=== PATIENT | female | born 1985 | race Caucasian/White ===

== ENCOUNTER 2017-03-02 10:51 | Inpatient (IN) | payer BC, OTHER ==
[~2017-03-02] VITALS: Ht 165.1 cm; Wt 109.3 kg
[2017-03-03 02:26] LABS: *URINE HCG, QUAL NEGATIVE (NEGATIVE)
[2017-03-03 02:30] LABS: *AMPHETAMINE, URINE NEGATIVE (NEGATIVE); *BARBITURATE, URINE NEGATIVE (NEGATIVE); *CANNABINOID, URINE POSITIVE (NEGATIVE); *COCCAINE, URINE POSITIVE (NEGATIVE); *OPIATE, URINE NEGATIVE (NEGATIVE); *PHENCYCLIDINE SCREEN,URINE NEGATIVE (NEGATIVE)
--- NOTE | 2017-03-03 03:30 | NUR ---
Intake Assessment; Patient is a 31 year old female, presented to [facility] to detoxify from ETOH, CRACK/COCAIN . Patient appears mildly intoxicated, patient admitted that he took substances prior to admission. Admitting vital signs are as follows; BP 125/78, HR 76, temperature 98.1, respirations of 16, Spo2 of 98% on room air denies pain at this time. Patient is awake, alert, oriented to name, place, time and situation, patient is cooperative. Patient did not bring any home medications. Educated patient regarding unit protocols and policies, patient verbalized understanding. Patient will be evaluated by MD in A.M. . No s/s of distress noted at this time. Respirations even and unlabored. Will admit to unit.
[2017-03-03 04:00] VITALS: BP 125/75
--- NOTE | 2017-03-03 04:00 | NUR ---
ADMISSION NOTE : Patient is a 31 year old female, presented to [facility] to detoxify from ETOH, CRACK/COCAIN . Patient appears mildly intoxicated, patient admitted that she took substances prior to admission. Pt. is NKA for meds and food, Full Code, on Regular Diet. Pt. doesn't have Primary care Provider at this time, denies vaccinations, denies history of seizures, was seen years ago by psychiatrist and diagnosed with Bipolar Disorder, Anxiety, Manic Depression with psychotic features. She doesn't visit Psychiatrist anymore and doesnt take prescribed meds. Admitting vital signs are as follows : BP 125/78, HR 76, temperature 98.1, respirations of 16, Spo2 of 98% on room air denies pain at this time. Patient is awake, alert, oriented to name, place, time and situation, patient is cooperative. Skin is intact , old cuts on the left wrist (11/2016) .Patient did not bring any home medications. Educated patient regarding unit protocols and policies, patient verbalized understanding. Patient will be evaluated by MD in A.M. No s/s of distress noted at this time. Respirations even and unlabored. Pt denies SI/HI at this moment, is cooperative. Pt reports minimal anxiety, educated on relaxation techniques and oriented to unit. COWS=2. Pt denies pain or body aches. Pupils PERRLA, 3 mm bilat. Lung sounds clear, pt denies cough or SOB. Heart rate regular, pt denies chest pain, no murmurs noted. No edema noted. Cap refill <3 sec. Bowel sounds active x 4, abdomen soft, non tender, pt denies n/v, last BM 03/02/17. Pt denies problems with urination, provided urine sample for drug screen. Pt encouraged to drink and provided with PO fluids. Pt oriented to room and equipment, call light system shown with returned demonstration. Safety measures in place : bed on lowest position with side rails x2 up for safety, call light within reach. Will continue to monitor closely and offer help. SUBSTANCE ABUSE HISTORY : ETOH/Carmen since 2005 , current dose 400ml QD PO since 2011, last use on 03/02/2017 CRACK/COCAINE since 2013, current dose 8 balls smoking since 2015 Occasionally Meth. 5 doses a day snorting/smoking x1/month. Occasionally Marijuana 1gm a day smoking x3 /week PAST MEDICAL HISTORY : Eczema Bipolar Disorder Manic Depression with psychotic features Anxiety Tx HISTORY : This one is first Detox. attempt. FAMILY HISTORY : Mother is clean for 24 years (ETOH/Cocaine), has Asthma Father is functional alcoholic. Brother : paranoid schizophrenic , history of seizures, Asthma. All four sisters use ETOH and Marijuana Son : Asthma
[2017-03-03] MEDS ORDERED: HYDROXYZINE PAMOATE 25 MG CAPSULE PO PRN (04:15)
[2017-03-03] MEDS ORDERED: MIRALAX 17 GM POWD.PACK PO PRN (04:15)
[2017-03-03] MEDS ORDERED: LORAZEPAM 2 MG/1 ML VIAL IM PRN (04:15)
[2017-03-03] MEDS ORDERED: ONDANSETRON 4 MG/2 ML VIAL IM PRN (04:15)
[2017-03-03] MEDS ORDERED: LOPERAMIDE HCL 2 MG CAPSULE PO PRN ×2 (04:15)
[2017-03-03] MEDS ORDERED: THIAMINE HCL 200 MG/2 ML VIAL IM ONE (04:15)
[2017-03-03] MEDS ORDERED: CLONIDINE HCL 0.1 MG TABLET PO PRN (04:15)
[2017-03-03] MEDS ORDERED: DICYCLOMINE HCL 20 MG TABLET PO PRN (04:15)
[2017-03-03] MEDS ORDERED: MAG HYDROX/AL HYDROX/SIMETH 30 ML LIQUID UDC PO PRN (04:15)
[2017-03-03] MEDS ORDERED: IBUPROFEN 400 MG TABLET PO PRN (04:15)
[2017-03-03] MEDS ORDERED: ONDANSETRON ODT 4 MG TAB.RAPDIS SL PRN (04:15)
[2017-03-03] MEDS ORDERED: LORAZEPAM 1 MG TABLET PO PRN ×2 (04:15)
[2017-03-03] MEDS ORDERED: ACETAMINOPHEN 325 MG TABLET PO PRN (04:15)
[2017-03-03] MEDS ORDERED: MAGNESIUM HYDROXIDE 30 ML LIQUID UDC PO PRN (04:15)
[2017-03-03 04:31] LABS: BASOPHILS % (AUTO) 0.4 % (0.0-2.0); EOSINOPHILS # (AUTO) 0.3 K/uL (0.0-0.7); EOSINOPHILS % (AUTO) 4.8 % (0.0-7.0); HEMATOCRIT 29.4 % (37-47); HEMOGLOBIN 10.1 G/DL (12.0-16.0); LYMPHOCYTES % (AUTO) 49.3 % (20.5-51.5); MEAN CORPUSCULAR HEMOGLOBIN 29.8 UUG (27.0-31.0); MEAN CORPUSCULAR HGB CONC 34 g/dL (32.0-37.0); MEAN CORPUSCULAR VOLUME 86.7 FL (81.0-99.0); MONOCYTES # (AUTO) 0.9 K/uL (2.0-10.0); MONOCYTES % (AUTO) 15.1 % (0.0-11.0); NEUTROPHILS # (AUTO) 1.8 K/uL (1.8-8.9); NEUTROPHILS % (AUTO) 30.4 % (38.5-71.5); PLATELET COUNT (AUTO) 309 K/UL (150-450); RED BLOOD CELL COUNT(AUTO) 3.39 MIL/UL (4.2-5.4); RED CELL DISTRIBUTION WIDTH 15.7 % (11.5-14.5)
[2017-03-03 04:48] LABS: THYROID STIMULATING HORMONE 16.614 mIU/mL (0.358-3.740)
[2017-03-03 04:49] LABS: ETHANOL < 3 MG/DL (0-0)
[2017-03-03 04:53] LABS: HIV-1 p24 ANTIGEN NON REACTIVE (NONREACTIVE); HIV-1/2 ANTIBODY NON REACTIVE (NONREACTIVE)
[2017-03-03 05:01] LABS: ALANINE AMINOTRANSFERASE 26 U/L (14-59); ALBUMIN 3.5 g/dL (3.4-5.0); ALKALINE PHOSPHATASE 51 U/L (50-136); AMYLASE 55 U/L (25-115); ASPARTATE AMINOTRANSFERASE 18 U/L (15-37); BILIRUBIN,TOTAL 0.1 mg/dL (0.2-1.0); CALCIUM 8.3 mg/dL (8.5-10.1); CARBON DIOXIDE 26 mmol/L (21-32); CHLORIDE 105 mmol/L (98-107); GFR 65 mL/min (>60); GLUCOSE 100 mg/dL (74-106); LIPASE 352 U/L (73-393); MAGNESIUM 1.6 mg/dL (1.8-2.4); POTASSIUM 3.7 mmol/L (3.5-5.1); SODIUM SERUM 141 mmol/L (136-145); TOTAL PROTEIN, SERUM 6.8 g/dL (6.4-8.2); UREA NITROGEN, BLOOD 12 mg/dL (7-18)
[2017-03-03 05:07] LABS: EOSINOPHILS % (MANUAL) 5 % (0-8); LYMPHOCYTES % (MANUAL) 59 % (20-40); MONOCYTES % (MANUAL) 6 % (2-10); NEUTROPHILS % (MANUAL) 30 % (42-75)
[2017-03-03 05:08] LABS: ANISOCYTOSIS 1+; PLATELET ESTIMATE ADEQUATE
[2017-03-03] MEDS ORDERED: THIAMINE HCL 200 MG/2 ML VIAL ONE (06:42)
--- NOTE | 2017-03-03 07:30 | NUR ---
END OF SHIFT NOTE : Patient is a 31 year old female, presented to [facility] to detoxify from ETOH, CRACK/COCAIN . Patient appears mildly intoxicated, patient admitted that she took substances prior to admission. Pt. is NKA for meds and food, Full Code, on Regular Diet. Pt remains compliant with the treatment plan. No PRNs were given during my shift. V/S remain WNL. RR=16, even and unlabored, lungs clear upon auscultation, abdomen soft and non- distended. Pt denies nausea, vomiting and diarrhea. LAST CIWA= 2 at 0400 , SYKGHN=985 ml, voided x 1, slept 1.5 hours. Safety measures in place : bed on lowest position with side rails x2 up for safety, call light within reach. Will continue to monitor closely and offer help.
--- NOTE | 2017-03-03 07:51 | NUR ---
START OF SHIFT Received pt this am AOx4. Pt presents with guarded mood and flat affect. Pt admitted last night and states she could not sleep last night. Night nurse reports pt sleeping about 1 hour and 30 minutes last night. Last CIWA 2 per night nurse. Pt currently states she is dizzy and tired. Pt has pending psych consult this shift. Will administer morning medications. Encouraged pt to increase fluid intake. Will provide safe and supportive environment. Will continue to monitor.
[2017-03-03 08:00] VITALS: BP 118/76
[2017-03-03] MEDS: THIAMINE HCL 100 MG TABLET PO SCH (08:54)
[2017-03-03] MEDS: FOLIC ACID 1 MG TABLET PO SCH (08:54)
[2017-03-03] MEDS: MULTIVITAMINS,THERAPEUTIC TABLET PO SCH (08:54)
[2017-03-03] MEDS ORDERED: THIAMINE HCL 100 MG TABLET PO SCH (09:00)
--- NOTE | 2017-03-03 11:20 | NUR ---
PRN MEDS prn tylenol given for h/a 7/10 on pain scale. will reassess
--- NOTE | 2017-03-03 11:50 | NUR ---
PRN REASSESSMENT Pt sleeping soundly in bed with rr even and unlabored at 16. bed locked and in lowest position will monitor
[2017-03-03] MEDS: QUETIAPINE FUMARATE 25 MG TABLET PO SCH ×2 (12:33→17:20)
--- NOTE | 2017-03-03 13:28 | NUR ---
PT REFUSED VITAL SIGNS AT 1200 Appears very anxious and agitated. Educated pt x3. pt still refused. RR even and unlabored. Will monitor.
[2017-03-03] MEDS ORDERED: MAGNESIUM OXIDE 400 MG TABLET PO ONE (14:45)
[2017-03-03] MEDS: GABAPENTIN 300 MG CAPSULE PO SCH ×2 (15:03→21:10)
[2017-03-03 16:00] VITALS: BP 124/70
--- NOTE | 2017-03-03 18:46 | NUR ---
END OF SHIFT Pt continues on PRNs only. Pt given Seroquel as ordered during shift. Pt given PRN Tylenol for headache with effectiveness. Patient only slept 1.5 hours last night, so patient slept most of shift. Last CIWA 7. Pt is agitated and anxious when awake. Pt is compliant with medications. Patient refused 1200 vital signs. All needs have been met. All safety measures are in place. Patient currently sleeping in bed with rr even and unlabored at 16. Bed locked and in lowest position and call graham within reach. Will pass report to oncoming nurse.
--- NOTE | 2017-03-03 19:30 | NUR ---
START OF SHIFT NOTE : Patient is a 31 year old female, presented to [facility] to detoxify from ETOH, CRACK/COCAIN . Patient appears mildly intoxicated, patient admitted that she took substances prior to admission. Pt. is NKA for meds and food, Full Code, on Regular Diet. Pt remains compliant with the treatment plan. V/S remain WNL. RR=16, even and unlabored, lungs clear upon auscultation, abdomen soft and non- distended. Pt denies nausea, vomiting and diarrhea. Current CIWA= 3 at 1930 . Safety measures in place : bed on lowest position with side rails x2 up for safety, call light within reach. Will continue to monitor closely and offer help.
[2017-03-03 20:00] VITALS: BP 119/59
[2017-03-04] VITALS: BP 118/67
[2017-03-04 04:00] VITALS: BP 116/69
--- NOTE | 2017-03-04 07:20 | NUR ---
END OF SHIFT NOTE : Patient is a 31 year old female, presented to [facility] to detoxify from ETOH, CRACK/COCAIN . Patient appears mildly intoxicated, patient admitted that she took substances prior to admission. Pt. is NKA for meds and food, Full Code, on Regular Diet. Pt remains compliant with the treatment plan. V/S remain WNL. RR=16, even and unlabored, lungs clear upon auscultation, abdomen soft and non- distended. Pt denies nausea, vomiting and diarrhea. Pt remains compliant with the treatment plan. No PRNs were given during my shift. V/S remain WNL. RR=16, even and unlabored, lungs clear upon auscultation, abdomen soft and non- distended. Pt denies nausea, vomiting and diarrhea. LAST CIWA=3 at 0400 , INTAKE= 500 ml, voided x 2, slept 8 hours.
--- NOTE | 2017-03-04 07:30 | NUR ---
START OF SHIFT NOTE Receive report from night nurse, 31 year old female, admitted for ETOH, Crack Cocaine dependence. NKA, Full Code, on Regular Diet. Currently pt is not on any taper but PRN's available for s/s of withdrawal. Per endorsement pt did receive any PRN's. Last CIWA-3, Slept for 8 hours. Received pt alert awake oriented x4 in stable condition.Breathing normal no SOB noted. Respiration even and unlabored, lungs clear upon auscultation, abdomen soft and non- distended. Pt denies nausea, vomiting and diarrhea. Safety measures in place, call light within reach. Will continue to monitor.
[2017-03-04 08:00] VITALS: BP 121/80
[2017-03-04] MEDS: MULTIVITAMINS,THERAPEUTIC TABLET PO SCH (08:27)
[2017-03-04] MEDS: QUETIAPINE FUMARATE 25 MG TABLET PO SCH ×2 (08:27→16:37)
[2017-03-04] MEDS: THIAMINE HCL 100 MG TABLET PO SCH (08:27)
[2017-03-04] MEDS: FOLIC ACID 1 MG TABLET PO SCH (08:27)
[2017-03-04] MEDS: GABAPENTIN 300 MG CAPSULE PO SCH ×3 (08:27→20:23)
[2017-03-04] MEDS ORDERED: TUBERCULIN,PURIF.PROT.DERIV. 5 TU/0.1 ML TEST ID ONE (09:00)
[2017-03-04 12:00] VITALS: BP 136/70
[2017-03-04] MEDS ORDERED: LORAZEPAM 1 MG TABLET PO PRN ×2 (12:15)
--- NOTE | 2017-03-04 13:49 | NUR ---
PRN MOTRIN Pt c/o headache 02/05, PRN Motrin 400mg 1 tab Po administered as ordered. will cont to monitor and reassess.
--- NOTE | 2017-03-04 14:49 | NUR ---
REASSESSMENT Pt reported medication effective, headache decreased to 1/10.
[2017-03-04 16:00] VITALS: BP 133/79
--- NOTE | 2017-03-04 18:31 | NUR ---
END OF SHIFT NOTE Gave report to night nurse, 31 year old female, admitted for ETOH, Crack Cocaine dependence. NKA, Full Code, on Regular Diet. Currently pt is not on any taper but PRN's available for s/s of withdrawal. Pt received PRN for headache effective. Last CIWA-1. Pt attended groups and activities. Pt remained compliant with treatment and medications. Vital signs remained stable. Safety measures in place, call light within reach. Will endorse pt to night nurse in stable condition.
--- NOTE | 2017-03-04 19:05 | NUR ---
Start of Shift Patient Received. Patient is in activities room participating in group activities. Patient is a 31year old female, admitted on 03/03/17 for ETOH Dependence under the care of Dr. Marti. PRN Medications available for increased signs and symptoms of withdrawal. Patient verbalizes No known allergies, wishes to be full code, following a regular diet, placed on fall precautions, skin noted intact. Past medical History of Eczema, Bipolar, Manic Depression, and anxiety. Per endorsement, was given PRN Motrin for a headache. At 1600 last CIWA noted to be 1. All needs attended to promptly. Will continue plan of care as ordered.
[2017-03-04 20:04] VITALS: BP 126/54
[2017-03-04] MEDS ORDERED: ACETAMINOPHEN 325 MG TABLET PO PRN (20:10)
--- NOTE | 2017-03-04 20:10 | NUR ---
MD Communication Patient reports of a headache 07/08. Offered PRN Motrin or Tylenol and patient verbalizes "they have been giving that to me since I've gotten here and it doesn't work." Relayed to MD with new order for Tylenol ES 1000mg Q8H. Order noted and carried out. Will administer accordingly.
[2017-03-04] MEDS: diphenhydrAMINE 50 MG CAPSULE PO PRN (20:23)
--- NOTE | 2017-03-04 20:30 | NUR ---
PRN Medication Administration Patient verbalizing inability of falling asleep and pain of 9/10 due to headache. PRN Benadryl and PRN Tylenol administered. Will continue to monitor.
[2017-03-04] MEDS ORDERED: ACETAMINOPHEN ES 500 MG TABLET ONE (20:31)
[2017-03-04] MEDS: ACETAMINOPHEN ES 500 MG TABLET PO PRN (20:34)
--- NOTE | 2017-03-04 22:00 | NUR ---
PRN Medication Reassessment Patient noted in bed, awake, and watching tv. Patient able to verbalize "my head ache is gone. The medication helped." PRN Tylenol noted to be effective. Will continue to monitor.
[2017-03-05 00:15] VITALS: BP 126/54
[2017-03-05 04:41] VITALS: BP 119/56
--- NOTE | 2017-03-05 07:14 | NUR ---
End of Shift Patient is in bed sleeping. Breathing even and non labored. No signs of pain or discomfort noted. Patient continues on plan of care as ordered per MD. New order obtained of Tylenol 1000mg PRN Q8H with a dose given at 2033 for pain due to head of 07/08. Medication noted to be effective. Patient was also given PRN Benadryl for inability of falling asleep and medication noted to be effective. Patient slept a total of 7 hours throughout the shift. All needs attended to promptly. Will endorse to continue plan of care as ordered.
[2017-03-05 08:00] VITALS: BP 121/82
--- NOTE | 2017-03-05 08:03 | NUR ---
START OF SHIFT NOTE Receive report from night nurse, 31 year old female, admitted for ETOH, Crack Cocaine dependence. NKA, Full Code, on Regular Diet. Pt reported PMH of Eczema, Bipolar, Manic Depression, and anxiety. Currently pt is not on any taper but PRN's available for s/s of withdrawal. Per endorsement pt received any PRN Benadryl/Tylenol ES effective per night nurse. Last CIWA-0, Slept for 7 hours. Received pt alert awake oriented x4 in stable condition.Breathing normal no SOB noted. Respiration even and unlabored, lungs clear upon auscultation, abdomen soft and non- distended. Pt denies nausea, vomiting and diarrhea. Safety measures in place, call light within reach. Will continue to monitor.
[2017-03-05] MEDS: GABAPENTIN 300 MG CAPSULE PO SCH ×3 (08:10→20:43)
[2017-03-05] MEDS: FOLIC ACID 1 MG TABLET PO SCH (08:10)
[2017-03-05] MEDS: THIAMINE HCL 100 MG TABLET PO SCH (08:10)
[2017-03-05] MEDS: MULTIVITAMINS,THERAPEUTIC TABLET PO SCH (08:10)
[2017-03-05] MEDS: QUETIAPINE FUMARATE 25 MG TABLET PO SCH ×2 (08:11→17:20)
[2017-03-05] MEDS: ACETAMINOPHEN ES 500 MG TABLET PO PRN (08:11)
[2017-03-05] MEDS ORDERED: LIDOCAINE VISCUS 2% 15 ML UDC MM PRN (11:15)
[2017-03-05] MEDS ORDERED: PATIENT MAY USE OWN MED- MD OK EACH EAR PRN (11:15)
[2017-03-05 12:00] VITALS: BP 120/80
[2017-03-05] MEDS: AMOXICILLIN-CLAVUL 875-125MG TABLET PO SCH ×2 (12:36→20:43)
--- NOTE | 2017-03-05 12:36 | NUR ---
NEW ORDER Pt was seen by with new order for Po antibiotic Augmentin 875 mg Po Q12 hours for periodontic abscess. Medication administered as ordered. Encourage Po fluids tolerated. Will cont to monitor.
[2017-03-05 13:07] LABS: *AMPHETAMINE, URINE NEGATIVE (NEGATIVE); *BARBITURATE, URINE NEGATIVE (NEGATIVE); *CANNABINOID, URINE NEGATIVE (NEGATIVE); *COCCAINE, URINE NEGATIVE (NEGATIVE); *OPIATE, URINE NEGATIVE (NEGATIVE); *PHENCYCLIDINE SCREEN,URINE NEGATIVE (NEGATIVE)
--- NOTE | 2017-03-05 14:48 | NUR ---
PRN LIDOCAINE VISCUS Pt c/o tooth ache 03/07, PRN Lidocaine viscus 5ml Po administered as ordered. will cont to monitor and reassess.
[2017-03-05] MEDS ORDERED: NAPROXEN 500 MG TABLET PO PRN (15:30)
--- NOTE | 2017-03-05 15:48 | NUR ---
REASSESSMENT Pt reported medication effective pain decreased to 3/10. Will cont to monitor.
[2017-03-05 16:00] VITALS: BP 119/65
--- NOTE | 2017-03-05 16:07 | NUR ---
PRN NAPROXEN Pt c/o tooth ache 03/07, PRN Naproxen 500mg for pain 1 tab Po administered as ordered. will cont to monitor and reassess.
--- NOTE | 2017-03-05 17:07 | NUR ---
REASSESSMENT Pt reported medication effective, tooth ache decreased to 1/10.
--- NOTE | 2017-03-05 18:55 | NUR ---
END OF SHIFT NOTE Gave report to night nurse, 31 year old female, admitted for ETOH, Crack Cocaine dependence. NKA, Full Code, on Regular Diet. Currently pt is not on any taper but PRN's available for s/s of withdrawal. Pt started on Po antibiotic for periodontic abscess, tolerating well no s/s of adverse reaction noted. Encourage Po fluids as tolerated. Pt received PRN for tooth ache effective. Pt attended groups and activities. Pt remained compliant with treatment and medications. Pt scheduled for discharge in AM, urine drug screen completed and placed in the chart. Vital signs remained stable. Last CIWA-0. Safety measures in place, call light within reach. Will endorse pt to night nurse in stable condition.
--- NOTE | 2017-03-05 19:11 | NUR ---
Start of shift note Received report from day shift nurse. Pt is a 31 yo female, A+Ox4, presenting to [facility] for ETOH/Crack/Meth/Marijuana dependence. Pt has NKA, is Full Code status, and on Regular diet. Pt is on Fall precautions. Pt has HX of Eczema, Manic depression, Bipolar, and Anxiety. Pt is on PRN medications, tolerated well, and is due for discharge tomorrow. No s/s of distress noted at this time. Respirations even and unlabored. Will continue to monitor.
[2017-03-05] MEDS ORDERED: Lidocaine Hcl MM (19:43)
[2017-03-05] MEDS ORDERED: Gabapentin PO (19:43)
[2017-03-05] MEDS ORDERED: Naproxen PO (19:43)
[2017-03-05] MEDS ORDERED: QUET25TA PO (19:43)
[2017-03-05] MEDS ORDERED: Amox Tr/Potassium Clavulanate PO (19:43)
[2017-03-05 20:15] VITALS: BP 124/75
[2017-03-05] MEDS: diphenhydrAMINE 50 MG CAPSULE PO PRN (20:53)
--- NOTE | 2017-03-05 20:56 | NUR ---
PRN Benadryl Pt c/o inability to sleep and requested for PRN Benadryl. Medication given and tolerated well. Will reassess within 1 HR. Will continue to monitor.
--- NOTE | 2017-03-05 21:45 | NUR ---
PRN Benadryl Reassessment Medication effective. Pt is resting well in bed at this time. No s/s of ASE/distress noted at this time. Respirations even and unlabored. Will continue to monitor.
[2017-03-06 00:06] VITALS: BP 118/79
[2017-03-06 04:16] VITALS: BP 117/68
[2017-03-06 05:06] LABS: HCV AB <0.1 s/co ratio (0.0-0.9); HEPATITIS B CORE AB, IgM Negative (Negative); HEPATITIS B SURFACE AG Negative (Negative)
--- NOTE | 2017-03-06 07:02 | NUR ---
End of shift note Pt is a 31 yo female, A+Ox4, presenting to [facility] for ETOH/Crack/Meth/Marijuana dependence. Pt has NKA, is Full Code status, and on Regular diet. Pt is on Fall precautions. Pt has HX of Eczema, Manic depression, Bipolar, and Anxiety. Pt is on PRN medications, tolerated well, and is due for discharge today. Pt was given PRN Benadryl @2055. Pt slept for a total of 8 HRS. Last CIWA: 1 @0400. No s/s of distress noted at this time. Respirations even and unlabored. Will endorse to day shift nurse.
--- NOTE | 2017-03-06 07:30 | NUR ---
START OF SHIFT Rcvd client in bed, she is A+Ox4, she presents with anxious mood, she stated, "I am anxious, cause after the treatment I have to go home and that's when it gets hard." Encourage client to attend AA and get a sponsor, she verbalized understanding. She completed detox for ETOH/Crack/Meth/Marijuana withdrawal. She has NKA, Full Code status, Regular diet. Fall precautions. PMH of Eczema, Manic depression, Bipolar, and Anxiety. She is due for discharge today. CASSIDY Horan @ 2055. Pt slept for a total of 8 hrs. Last CIWA 1 @0400. Call light within reach. Will continue to monitor.
[2017-03-06] MEDS: QUETIAPINE FUMARATE 25 MG TABLET PO SCH (08:30)
[2017-03-06] MEDS: THIAMINE HCL 100 MG TABLET PO SCH (08:30)
[2017-03-06] MEDS: AMOXICILLIN-CLAVUL 875-125MG TABLET PO SCH (08:30)
[2017-03-06] MEDS: FOLIC ACID 1 MG TABLET PO SCH (08:30)
[2017-03-06] MEDS: GABAPENTIN 300 MG CAPSULE PO SCH (08:30)
[2017-03-06] MEDS: MULTIVITAMINS,THERAPEUTIC TABLET PO SCH (08:30)
[2017-03-06 08:55] VITALS: BP 130/80
--- NOTE | 2017-03-06 09:00 | NUR ---
Zero induration noted on Right F/A TB test
--- NOTE | 2017-03-06 10:25 | NUR ---
DISCHARGE NOTE Client was admitted for ETOH withdrawal. Last CIWA-. Client denies any pain or discomfort. Client denies any SI/HI ideation. Vital signs stable. Client states that she feels ready for discharge. Client has no home medications. Discharge instructions and valuables secures in duffle bag and then given to TRANSMISSION TESTER. All belongings returned to the client, she verbalized her discharge instructions. Client's ID band removed, she ambulated off of the unit. Client left via [facility] to [facility] in stable condition.
== END 2017-03-06 10:25 | disposition other institution (70) | DRG 895 ==
LOC: SRC 03-03 01:00
PROVIDERS: ADMIT Internal Medicine; ATTEND Internal Medicine
PROC: HZ2ZZZZ Detoxification Services for Substance Abuse Treatment (ICD-10-PCS; principal; 2017-03-03)
PROC: HZ41ZZZ Group Counseling for Substance Abuse Treatment, Behavioral (ICD-10-PCS; 2017-03-04)
DX: F10.230 Alcohol dependence with withdrawal, uncomplicated (principal); F14.20 Cocaine dependence, uncomplicated; F31.64 Bipolar disorder, current episode mixed, severe, with psychotic features; Y90.9 Presence of alcohol in blood, level not specified; D64.9 Anemia, unspecified; E07.81 Sick-euthyroid syndrome; E83.42 Hypomagnesemia; L30.9 Dermatitis, unspecified; Z82.5 Family history of asthma and other chronic lower respiratory diseases; Z81.8 Family history of other mental and behavioral disorders; Z81.1 Family history of alcohol abuse and dependence; F17.210 Nicotine dependence, cigarettes, uncomplicated; Z91.14 Patient's other noncompliance with medication regimen; F12.10 Cannabis abuse, uncomplicated; F15.10 Other stimulant abuse, uncomplicated; K05.219 Aggressive periodontitis, localized, unspecified severity; F41.9 Anxiety disorder, unspecified
CPT/HCPCS: 36415; 70030-TC; 80307; 80349; 80353; 83690; 83735; 84443; 84703; 85025; 86580; 86592; 86705; 86803; 87340; 87806; 93005; G6040-TC; J3411; Q0163